=== PATIENT | female | born 1995 | race African-American/Black ===

== ENCOUNTER 2018-09-06 05:58 | Emergency (ER) | payer SELFPAY ==
[~2018-09-06] VITALS: Ht 195.6 cm; Wt 100.0 kg
[2018-09-06 06:01] VITALS: BP 103/33
== END 2018-09-06 07:27 | disposition left against medical advice (07) ==
LOC: ER 06:09
DX: S00.211A Abrasion of right eyelid and periocular area, initial encounter (principal); Y08.89XA Assault by other specified means, initial encounter; Y93.89 Activity, other specified; Y92.89 Other specified places as the place of occurrence of the external cause; Y99.8 Other external cause status
CPT/HCPCS: 81025; 99283